=== PATIENT | male | born 1985 | race Caucasian/White ===

== ENCOUNTER 2021-07-14 20:44 | Emergency (ER) | payer SELFPAY ==
[~2021-07-14] VITALS: Ht 177.8 cm; Wt 72.0 kg
[~2021-07-14 20:44] MED LIST: CLIN150C2 PO; NO HOME MEDS
[2021-07-14 21:27] VITALS: BP 148/93
[2021-07-14 22:58] LABS: URINE AMPHETAMINE SCREEN NEGATIVE (Neg); URINE BARBITUATE SCREEN NEGATIVE (Neg); URINE BENZODIAZEPINES SCREEN NEGATIVE (Neg); URINE CANNABINOID SCREEN NEGATIVE (Neg); URINE COCAINE SCREEN NEGATIVE (Neg); URINE METHADONE SCREEN NEGATIVE (Neg); URINE OPIATE SCREEN NEGATIVE (Neg); URINE PHENCYCLIDINE SCREEN NEGATIVE (Neg)
== END 2021-07-14 23:20 | disposition home or self-care (01) ==
LOC: ER 20:45
DX: Z00.00 Encounter for general adult medical examination without abnormal findings (principal)
CPT/HCPCS: 36415; 80305; 80320; 99283